=== PATIENT | female | born 1975 | race Caucasian/White ===

== ENCOUNTER 2019-02-26 11:04 | Emergency (ER) | payer SELFPAY ==
[2019-02-26] MEDS ORDERED: Acetaminophen 325 MG TAB ONE ×2 (12:45→19:08)
[2019-02-26] MEDS ORDERED: hydrOXYzine 25 MG TAB ONE (13:30)
[2019-02-27] MEDS ORDERED: hydrOXYzine Pamoate 25 mg Capsule ONE (19:21)
== END 2019-03-01 18:38 ==
LOC: ERS 11:04
DX: R45.851 Suicidal ideations (principal); J45.909 Unspecified asthma, uncomplicated; F32.9 Major depressive disorder, single episode, unspecified; F17.210 Nicotine dependence, cigarettes, uncomplicated
CPT/HCPCS: 99285; Q0177

== ENCOUNTER 2025-06-10 21:09 | Inpatient (IN) | payer OTHER ==
[2025-06-10 22:54] VITALS: BMI 48.4
[2025-06-10] MEDS ORDERED: Ondansetron PF 4 MG/2 ML Vial IVP PRN (23:16)
[2025-06-11 05:31] LABS: #Basophils 0.06 10x3/uL (0.0-0.2); #Eosinophils 0.22 10x3/uL (0.0-0.7); #Monocytes 0.76 10x3/uL (0.11-0.59); #Neutrophils 10.95 10x3/uL (1.40-6.50); %Basophils 0.4 % (0.0-1.0); %Eosinophils 1.6 % (0.0-10.0); %Lymphocytes 12.0 % (21.0-51.0); %Monocytes 5.5 % (0.0-10.0); %Neutrophils 79.8 % (42.0-75.0); Hematocrit 31.2 % (36.0-47.0); Hemoglobin 9.6 g/dL (12.0-16.0); Mean Corpuscular Hemoglobin 28.5 pg (27.0-31.0); Mean Corpuscular Volume 92.6 fL (78.0-98.0); Platelet Count 348 10x3/uL (130-400); Red Blood Cell (RBC) Count 3.37 mill/uL (4.20-5.40); White Blood Cell (WBC) Count 13.72 10x3/uL (4.8-10.8)
[2025-06-11 05:38] LABS: Vancomycin, Random 11.3 ug/mL (See Comment)
[2025-06-11 05:45] LABS: Anion Gap 8 mmol/L (10-20); BUN (Urea Nitrogen) 12 mg/dL (7.0-18.7); Calc. Creatinine Clearance 154 mL/min (70-130); Calcium 8.3 mg/dL (7.8-10.44); Carbon Dioxide 27 mmol/L (22-29); Chloride 107 mmol/L (98-107); Glucose 100 mg/dL (70-105); Potassium 4.7 mmol/L (3.5-5.1); Sodium 137 mmol/L (136-145)
[2025-06-11 05:46] LABS: CRP, High Sensitivity at Bryan 10.66 mg/dL (< or = 0.5)
[2025-06-11] MEDS: Vancomycin 1.5 GM / NS 500 ML VIAL-2-BAG IVPB SCH (09:00)
[2025-06-11] MEDS: Furosemide 20 MG TAB PO SCH (09:04)
[2025-06-11] MEDS: Lisinopril 20 MG TAB PO SCH (09:05)
[2025-06-11] MEDS: Acetaminophen 325 MG TAB PO PRN (09:06)
[2025-06-11] MEDS: HYDROcodone/Acetaminophen 7.5/325 mg Tablet PO PRN (11:32)
[2025-06-11 13:05] LABS: Hemoglobin 9.4 g/dL (12.0-16.0)
[2025-06-11] MEDS: Vancomycin HCl 1.25 GM in Sodium Chloride 0.9% 250 ML 250 ML IVPB SCH (20:23)
[2025-06-12 07:09] LABS: #Basophils 0.05 10x3/uL (0.0-0.2); #Eosinophils 0.35 10x3/uL (0.0-0.7); #Monocytes 0.52 10x3/uL (0.11-0.59); #Neutrophils 6.68 10x3/uL (1.40-6.50); %Basophils 0.5 % (0.0-1.0); %Eosinophils 3.7 % (0.0-10.0); %Lymphocytes 18.7 % (21.0-51.0); %Monocytes 5.5 % (0.0-10.0); %Neutrophils 71.1 % (42.0-75.0); Hematocrit 32.1 % (36.0-47.0); Hemoglobin 10.3 g/dL (12.0-16.0); Mean Corpuscular Hemoglobin 29.2 pg (27.0-31.0); Mean Corpuscular Volume 90.9 fL (78.0-98.0); Platelet Count 361 10x3/uL (130-400); Red Blood Cell (RBC) Count 3.53 mill/uL (4.20-5.40); White Blood Cell (WBC) Count 9.41 10x3/uL (4.8-10.8)
[2025-06-12 07:49] LABS: Anion Gap 13 mmol/L (10-20); BUN (Urea Nitrogen) 12 mg/dL (7.0-18.7); Calc. Creatinine Clearance 195 mL/min (70-130); Calcium 8.8 mg/dL (7.8-10.44); Carbon Dioxide 29 mmol/L (22-29); Chloride 102 mmol/L (98-107); Glucose 98 mg/dL (70-105); Potassium 4.7 mmol/L (3.5-5.1); Sodium 139 mmol/L (136-145); Vancomycin, Random 15.8 ug/mL (See Comment)
[2025-06-12] MEDS: Enoxaparin 40 MG (0.4 mL) SYRINGE SC SCH ×2 (08:54→20:34)
[2025-06-12] MEDS: Lisinopril 20 MG TAB PO SCH (20:33)
[2025-06-13] MEDS: Lisinopril 20 MG TAB PO SCH (08:28)
[2025-06-13] MEDS: Senokot S 8.6-50 MG TAB PO PRN (10:38)
[2025-06-15 05:46] LABS: Vancomycin, Random 9.6 ug/mL (See Comment)
[2025-06-15] MEDS: cefTRIAXone\\ROCEPHIN 2 GM in Sodium Chloride 0.9% 100 ML IVPB SCH (14:35)
[2025-06-16 15:35] VITALS: BMI 48.4
[2025-06-16] MEDS: Senokot S 8.6-50 MG TAB PO PRN (20:32)
[2025-06-17 08:05] VITALS: TEMP 97.6
[2025-06-17 08:31] VITALS: BP 124/76
== END 2025-06-17 16:05 | disposition home or self-care (01) | DRG 872 ==
LOC: T4-B 22:39
PROVIDERS: ADMIT Internal Medicine; ATTEND Hospitalist
DX: A41.9 Sepsis, unspecified organism (principal); L03.116 Cellulitis of left lower limb; I10 Essential (primary) hypertension; E03.9 Hypothyroidism, unspecified; D64.9 Anemia, unspecified; F32.A Depression, unspecified; Z98.890 Other specified postprocedural states; Z72.0 Tobacco use; Z79.899 Other long term (current) drug therapy
CPT/HCPCS: 36415; 80048; 80202; 83880; 84443; 85025; 86141; 87070; 87077; 87081; 87186; 87205; 97139; J0692; J0696; J1650; J2272; J3373; J7030; J7050

== ENCOUNTER 2025-07-04 12:09 | Emergency (ER) | payer OTHER ==
[2025-07-04] MEDS ORDERED: cefTRIAXone (ROCEPHIN) 2 GM VIAL ONE (15:16)
== END 2025-07-04 18:00 | disposition home or self-care (01) ==
LOC: ERS 12:09
DX: T80.211A Bloodstream infection due to central venous catheter, initial encounter (principal)
CPT/HCPCS: 71045; 96374; J0696